=== PATIENT | female | born 1930 | race Caucasian/White ===

== ENCOUNTER 2019-05-13 16:03 | Emergency (ER) | payer MEDICARE, MEDICAID ==
[2019-05-13 16:55] VITALS: BP 114/74; PULSE 106
[2019-05-13] MEDS ORDERED: Lidocaine 1% 20 ML MDV ONE (16:55)
--- NOTE | 2019-05-13 17:00 | EDM.PDOC ---
ED HPI GENERAL MEDICAL PROBLEM - General Stated Complaint: FALL/LACERATION Time Seen by Provider: 05/13/19 16:55 Source of Information: Reports: Patient History Limitations: Reports: No Limitations - History of Present Illness INITIAL COMMENTS - FREE TEXT/NARRATIVE: Johanna is a pleasant 88 year old female who presents to the ED with c/o a laceration to her left hand. SHe reports her phone started ringing and she was rushing to get to the phone when she tripped and landed on her tv stand. Reports she hit her left wrist and right hand. Does have ecchymosis and swelling noted to left wrist and right finger. She denies any significant pain in these areas and reports she has full ROM. Does have 2.25 cm laceration noted at base of 1st proximal phalanx. She reports she takes aspirin daily so she bruises easily. Did not hit her head and has no c/o pain elsewhere. Left Hand Pain Score (Numeric/FACES): 0 - Related Data Allergies Allergy/AdvReac Type Severity Reaction Status Date / Time Penicillins Allergy Cannot Verified 05/13/19 16:48 Remember Home Meds: Home Meds Acetaminophen [Tylenol Extra Strength] 500 mg PO TID 01/15/15 [History] Amiodarone HCl 100 mg PO DAILY 01/15/15 [History] Aspirin 325 mg PO DAILY 01/15/15 [History] Furosemide 20 mg PO DAILY 01/15/15 [History] Metoprolol Tartrate 50 mg PO BID 01/15/15 [History] Multivitamin [Daily Vitamin] 1 each PO DAILY 01/15/15 [History] Quinapril HCl 40 mg PO DAILY 01/15/15 [History] SitaGLIPtin [Januvia] 100 mg PO DAILY 01/15/15 [History] amLODIPine Besylate [Norvasc] 5 mg PO DAILY 01/15/15 [History] atorvaSTATin Calcium [Atorvastatin Calcium] 10 mg PO DAILY 01/15/15 [History] glipiZIDE [Glipizide ER] 10 mg PO BID 01/15/15 [History] metFORMIN HCl [Metformin HCl] 1,000 mg PO BID 01/15/15 [History] Review of Systems - Review of Systems Review Of Systems: ROS reveals no pertinent complaints other than HPI. ED EXAM, GENERAL - Physical Exam Exam: See Below Exam Limited By: No Limitations General Appearance: Alert, WD/WN, No Apparent Distress Eye Exam: Bilateral Eye: EOMI, PERRL Head: Atraumatic, Normocephalic Neck: Normal Inspection, Supple, Non-Tender, Full Range of Motion Respiratory/Chest: No Respiratory Distress, Lungs Clear, Normal Breath Sounds, No Accessory Muscle Use, Chest Non-Tender Cardiovascular: Normal Peripheral Pulses, Regular Rate, Rhythm, No Edema, No Gallop, No JVD, No Murmur, No Rub Peripheral Pulses: 2+: Radial (L), Radial (R) Extremities: Normal Range of Motion, Non-Tender, Normal Capillary Refill, Other (ecchymosis and swelling noted to medial aspect of left wrist) Psychiatric: Normal Affect, Normal Mood Skin Exam: Wound/Incision (2.25 cm laceration at base of left 1st phalanx) ED TRAUMA EXTREMITY PROCEDURES - Laceration/Wound Repair Left Proximal Hand Lac/Wound Length In cm: 2.3 Appearance: Subcutaneous, Linear, Clean Distal NVT: Neuro & Vascular Intact, No Tendon Injury Anesthetic Type: Local Local Anesthesia - Lidocaine (Xylocaine): 1% Plain Local Anesthetic Volume: 3cc Skin Prep: Chlorhexidine (Hibiciens), Providone-Iodine (Betadine) Exploration/Debridement/Repair: Wound Explored, No Foreign Material Found Closed With: Sutures Suture Size: 5-0 # of Sutures: 4 Suture Type: Nylon, Interrupted, Simple Sterile Dressing Applied: Nurse Tetanus Status Addressed: Yes Complications: No Course - Vital Signs Last Recorded V/S: Last Vital Signs Temp 97.3 F 05/13/19 16:53 Pulse 106 H 05/13/19 16:53 Resp 20 05/13/19 16:53 BP 114/74 05/13/19 16:53 Pulse Ox 99 05/13/19 16:53 - Orders/Labs/Meds Meds: Medications Discontinued Medications Generic Name Dose Route Start Last Admin Trade Name Freq PRN Reason Stop Dose Admin Lidocaine HCl Confirm 05/13/19 16:55 05/13/19 17:28 Xylocaine 1% Administered 05/13/19 16:56 20 ml Dose Administration 20 ml .ROUTE .STK-MED ONE Neomycin/Polymyxin/Bacitracin 1 each 05/13/19 17:48 05/13/19 17:49 Triple Antibiotic Oint TOP 05/13/19 17:49 1 each ONETIME ONE Administration Neomycin/Polymyxin/Bacitracin Confirm 05/13/19 17:34 05/13/19 17:52 Triple Antibiotic Oint Administered 05/13/19 17:35 Not Given Dose 1 each .ROUTE .STK-MED ONE Departure - Departure Time of Disposition: 17:46 Disposition: Home, Self-Care 01 Condition: Good Clinical Impression: Laceration of hand Qualifiers: Encounter type: initial encounter Foreign body presence: without foreign body Laterality: left Qualified Code(s): S61.412A - Laceration without foreign body of left hand, initial encounter Contusion of wrist, left Qualifiers: Encounter type: initial encounter Qualified Code(s): S60.212A - Contusion of left wrist, initial encounter Fall Qualifiers: Encounter type: initial encounter Qualified Code(s): W19.XXXA - Unspecified fall, initial encounter - Discharge Information *PRESCRIPTION DRUG MONITORING PROGRAM REVIEWED*: Not Applicable *COPY OF PRESCRIPTION DRUG MONITORING REPORT IN PATIENT RICK: Not Applicable Instructions: Laceration Care, Adult Referrals: PCP,Unknown [Primary Care Provider] - Forms: ED Department Discharge Additional Instructions: - Tylenol or ibuprofen as needed for pain/discomfort - Ice wrist until swelling improves - Ice/heat to areas of discomfort as needed - Do not submerge laceration in water - Keep area clean and dry - May use Neosporin and cover with bandaid - Follow up for suture removal 10 days - Assessment/Plan Plan: PLEASE SEE NURSES NOTE FOR PMH, PSH, SH, & FH.
[2019-05-13] MEDS ORDERED: Bacitracin/Neomycin/Polymyxin B Oint 0.9 GM U/D Packet ONE (17:34)
[2019-05-13] MEDS ORDERED: Bacitracin/Neomycin/Polymyxin B Oint 0.9 GM U/D Packet TOP ONE (17:48)
== END 2019-05-13 17:54 | disposition home or self-care (01) ==
LOC: CC.ED 16:03
DX: S61.012A Laceration without foreign body of left thumb without damage to nail, initial encounter (principal); S60.212A Contusion of left wrist, initial encounter; Z79.82 Long term (current) use of aspirin; Z79.84 Long term (current) use of oral hypoglycemic drugs; Z88.0 Allergy status to penicillin; Z79.899 Other long term (current) drug therapy; W01.190A Fall on same level from slipping, tripping and stumbling with subsequent striking against furniture, initial encounter
CPT/HCPCS: 12001; 99283; J2001; 40830